=== PATIENT | male | born 1970 | race Hispanic/Latino ===

== ENCOUNTER 2019-08-24 22:12 | Emergency (ER) | payer SELFPAY ==
[2019-08-24 23:07] LABS: #Basophils 0.1 thou/uL (0.0-0.2); #Eosinphils 0.4 thou/uL (0.0-0.7); #Lymphocytes 2.7 thou/uL (1.20-3.40); #Monocytes 0.9 thou/uL (0.11-0.59); #Neutrophils 5.3 thou/uL (1.40-6.50); %Basophils 0.6 % (0.0-1.0); %Eosinophils 4.2 % (0.0-10.0); %Lymphocytes 29.1 % (21.0-51.0); %Monocytes 9.7 % (0.0-10.0); %Neutrophils 56.4 % (42.0-75.0); Hemoglobin 15.6 g/dL (14.0-18.0); Mean Corpuscular HGB CONC 33.5 g/dL (32.0-36.0); Mean Corpuscular Hemoglobin 29.3 pg (27.0-31.0); Mean Corpuscular Volume 87.5 fL (78.0-98.0); Platelet Count 335 thou/uL (130-400); RBC Distribution Width 12.2 % (11.5-14.5); Red Blood Cell (RBC) Count 5.32 mill/uL (4.70-6.10); White Blood Cell (WBC) Count 9.3 thou/uL (4.8-10.8)
[2019-08-24 23:29] LABS: ALT (SGPT) 29 U/L (8-55); AST (SGOT) 19 U/L (5-34); Albumin 4.1 g/dL (3.5-5.0); Alkaline Phosphatase 60 U/L (40-110); Anion Gap 13 mmol/L (10-20); BUN (Urea Nitrogen) 17 mg/dL (8.9-20.6); Bilirubin, Total 0.3 mg/dL (0.2-1.2); Calc. Creatinine Clearance 0 mL/min (70-130); Calcium 9.1 mg/dL (7.8-10.44); Carbon Dioxide 24 mmol/L (22-29); Chloride 105 mmol/L (98-107); Estimated GFR-MDRD 73; Globulin 2.8 g/dL (2.4-3.5); Glucose 98 mg/dL (70-105); Protein, Total 6.9 g/dL (6.0-8.3); Sodium 138 mmol/L (136-145)
[2019-08-25 00:35] LABS: Bilirubin Negative (Negative); Blood, Urine Negative (Negative); Clarity Clear (Clear); Glucose, Urine (Dipstick) Normal (Negative); Leukocyte Negative Leu/uL (Negative); Nitrite Negative (Negative); Protein, Urine (Dipstick) 20 mg/dL (Neg-Trace); Urobilinogen Normal mg/dL (Less than 2)
--- NOTE | 2019-08-25 08:16 | CT ---
PRELIMINARY REPORT/[facility]/EMERGENCY AFTER HOURS PROCEDURE: EXAM: CT Abdomen and Pelvis with Intravenous Contrast CLINICAL HISTORY: RLQ pain, intermittently for 2 years, he states it has progressively become more severe. Made worse w ith movement, he describes it as "sharp". TECHNIQUE: Axial computed tomography images of the abdomen and pelvis with intravenous contrast. CONTRAST: With; ISOVUE 370, 95 COMPARISON: None provided. FINDINGS: LUNG BASES: No basilar airspace consolidation or pleural effusion. The coronary arteries are calcifi ed. LIVER: 6 mm hypoenhancing lesion in the right lobe of the liver that is too small to characterize by CT criteria. The liver size is normal. GALLBLADDER AND BILE DUCTS: Unremarkable. No calcified stone. No ductal dilation. PANCREAS: Unremarkable. SPLEEN: Unremarkable. ADRENAL GLANDS: Unremarkable. KIDNEYS, URETERS, AND BLADDER: Unremarkable. No hydronephrosis or nephrolithiasis. No ureteral or chandler dder calculi. Diffuse bladder wall thickening. STOMACH AND BOWEL: Small hiatal hernia. Right-sided inguinal hernia. The cecum, appendix, and dista l small bowel protrude into the hernia sac. There is fluid surrounding the bowel loops in the hernia sac. The small bowel is dilated proximally measuring up to 3.0 cm in diameter. No wall thickening. No CT evidence of colitis or acute diverticulitis. Colonic diverticulosis. APPENDIX: No CT evidence for appendicitis. PERITONEUM: No free fluid. No free air. LYMPH NODES: No lymphadenopathy. REPRODUCTIVE: Unremarkable as visualized. VASCULATURE: No aortic aneurysm. Atherosclerosis. BONES: No fracture or suspicious osseous abnormality. ABDOMINAL WALL AND SOFT TISSUES: Right-sided inguinal hernia with cecum, distal small bowel, and appe ndix protruding into the hernia sac. Fluid in the hernia sac. Fat filled left inguinal hernia. IMPRESSION: Right-sided inguinal hernia with the cecum, distal small bowel, and appendix protruding into the jonny ia sac. Dilated loops of small bowel proximal to the hernia sac concerning for incarcerated hernia w ith fluid in the hernia sac. A strangulated hernia cannot be excluded. Colonic diverticulosis with no evidence of diverticulitis. Diffuse bladder wall thickening which may be secondary to underdistention, chronic distal obstruction , or cystitis. Correlation with urinalysis is recommended. Wall thickening of the sigmoid colon which may be secondary to underdistention or an infectious/infla mmatory colitis. ELECTRONICALLY SIGNED BY: Luiz Kessler MD Aug 25, 2019 1:20:39 AM CDT This report is intended for review by the ordering physician only, in accordance of law. If you recei ve this report in error, please call [facility] at [phone]. FINAL REPORT CT ABDOMEN AND PELVIS WITH IV CONTRAST: I agree with the preliminary report given by [facility].
[2019-08-25] MEDS ORDERED: Iopamidol-370 76% 500 ML 1 ML ONE (15:12)
== END 2019-08-25 02:39 | disposition home or self-care (01) ==
LOC: ERS 22:12
DX: K40.90 Unilateral inguinal hernia, without obstruction or gangrene, not specified as recurrent (principal); F17.210 Nicotine dependence, cigarettes, uncomplicated
CPT/HCPCS: 36415; 74177; 80053; 81003; 83605; 85025; Q9967